=== PATIENT | female | born 1990 | race Caucasian/White ===

== ENCOUNTER → 2017-08-27 12:20 | Outpatient (CLI) | payer OTHER, SELFPAY ==
[2017-08-28 16:53] LABS: Strep Grp B PCR NEG for Grp B Strep
== END ==
PROVIDERS: Family Provider Internal Medicine; PCP Internal Medicine; Visit Provider Obstetrics & Gynecology
DX: Z34.03 Encounter for supervision of normal first pregnancy, third trimester (principal)
CPT/HCPCS: 87653

== ENCOUNTER 2017-09-03 08:51 | Outpatient (CLI) | payer OTHER, MEDICAID, SELFPAY ==
--- NOTE | 2017-09-03 17:53 | PM.OBTRLD ---
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
== END 2017-09-03 09:38 | disposition home or self-care (01) ==
LOC: LABOR 09:15 → OB 09-04 09:24
PROVIDERS: Family Provider Internal Medicine; PCP Internal Medicine; Visit Provider Obstetrics & Gynecology
DX: O24.913 Unspecified diabetes mellitus in pregnancy, third trimester (principal); Z3A.37 37 weeks gestation of pregnancy
CPT/HCPCS: 59025; G0378; G0379

== ENCOUNTER 2017-09-06 17:30 | Outpatient (CLI) | payer OTHER, MEDICAID, SELFPAY | END 2017-09-06 18:05 | disposition home or self-care (01) | LOC: OB 09-09 10:07 | PROVIDERS: Family Provider Internal Medicine; PCP Internal Medicine; Visit Provider Obstetrics & Gynecology | DX: O24.913 Unspecified diabetes mellitus in pregnancy, third trimester (principal); Z3A.38 38 weeks gestation of pregnancy | CPT/HCPCS: 59025; G0378; G0379 ==

== ENCOUNTER 2017-09-08 17:55 | Inpatient (IN) | payer OTHER, MEDICAID, SELFPAY ==
[2017-09-08 19:16] LABS: Add Manual Diff / Slide Review NO; Basophils Percent Auto 0.6 % (0-2); Eosinophils Percent Auto 1.1 % (2-4); Hematocrit 35.8 % (36-46); Hemoglobin 12.1 g/dL (12.0-16.0); Lymphocytes Percent Auto 13.3 % (25-40); Mean Corpuscular HGB Conc 33.8 % (30-36); Mean Corpuscular Hemoglobin 28.8 PG (26-34); Mean Corpuscular Volume 85.3 fL (80-100); Monocytes Percent Auto 5.3 % (3-14); Neutrophils Absolute Auto 8800 /uL (3000-5900); Neutrophils Percent Auto 79.7 % (50-75); Platelet Count 230 X10^3/uL (150-400); Red Cell Distribution Width 14.4 % (11.6-14.8); White Blood Cell Count 11.1 X10^3/uL (4.5-11.0)
[2017-09-08 19:21] VITALS: BP 114/72
[2017-09-08] MEDS: ACETAMINOPHEN 325 MG TABLET 650 MG PO (22:21)
[2017-09-08] MEDS: diphenhydrAMINE 25 MG TABLET PO (22:21)
[2017-09-08] MEDS: miSOPROStol 25 MCG TABLET VAG (22:22)
[2017-09-09] VITALS (8 sets, daily range): BP systolic 103–110; BP diastolic 59–77; PULSE 81–95; RESP 14–18; TEMP 37.1; O2SAT 95–99
[2017-09-09] MEDS: miSOPROStol 25 MCG TABLET VAG (02:20)
--- NOTE | 2017-09-09 07:47 | PM.OBHP.1 ---
OB HPI Date/Time Date of admission: 09/09/17 Date Patient Seen: 09/09/17 Time Patient Seen: 07:48 History of Present Illness Chief complaint: OBSERVATION : 1 Para: 0 Estimated Date of Delivery: 09/22/17 Estimated Gestational Age (weeks): 38 Narrative: Kriss Guerrier is a 26 year old female one para 0 who is an insulin-dependent gestational diabetic. Estimated weight on last exam was the 95th percentile. The patient is blood type A positive antibody screen negative. VDRL was nonreactive. Hematocrit was 381. Platelets were 292,000. Urine culture was positive but not treated during this . Hepatitis-B surface antigen was negative. HIV was negative. Chlamydia and GC screening were negative. Rubella was immune. Hep C was negative. Her Pap test was negative. Her varicella immunity was immune. Aneuploid screening in the 2nd trimester was negative. Group B strep was negative. anatomy screen was normal. Patient evidently had an abnormal 1 hr screen abdomen abnormal 3 hr GTT and was begun on insulin at least 13 and half weeks of to this patient may be simply a diabetic who is . Patient's insulin dose before admission was 24 units of NPH in her blood sugars were in well controlled. Indications Indication for induction OB: medical complication History of Present care: good care Dating criteria: LMP confirmed by 1st trimester US Ultrasounds: normal 1st trimester US and normal mid trimester US Obstetrical complications: gestational diabetes Preadmission Labs Blood type: A (+) positive -: Antibody screen: negative, Cystic fibrosis screen: unknown, GBS status: negative, HBsAG: negative, HIV: negative, HSV 1: negative, HSV 2: negative and RPR/VDLR: negative -: Chlamydia screen: not detected and Gonorrhea screen: not detected -: Rubella: immune and Varicella: immune HCT: 38 HCAB: negative PAP: Normal Quad screen: Normal Narrative: No record of 1 hr screen her three 0 GTT because the patient was diabetic early in her Evaluation Evaluation Laboratory results: Laboratory Tests 09/08/17 09/08/17 18:50 18:50 WBC 11.1 H RBC 4.20 Hgb 12.1 Hct 35.8 L MCV 85.3 MCH 28.8 MCHC 33.8 RDW 14.4 Plt Count 230 Neut % (Auto) 79.7 H Lymph % (Auto) 13.3 L [place] % (Auto) 5.3 Eos % (Auto) 1.1 L Baso % (Auto) 0.6 Neut # (Auto) 8800 H Blood Type A Positive Antibody Screen Negative PFSH Family History Grandfather Cancer Grandmother Heart disease Grandfather Heart disease Social History Smoking Status: Never smoker Meds Home Medications Medication Instructions Recorded Confirmed Type Glucose: Home Monitor ea TOPICAL SEE INSTRUCTIONS #1 02/19/17 Rx Lancets ea TOPICAL SEE INSTRUCTIONS #120 02/19/17 Rx Test Strips - Freestyle str TOPICAL SEE INSTRUCTIONS #120 02/19/17 Rx [place] 5/16 Inch ea SQ HS #30 03/11/17 Rx PNV cmb#95-ferrous fumarate-FA 1 tab PO DAILY 09/08/17 09/08/17 History [] insulin NPH isoph U-100 human 24 unit SQ HS 09/08/17 09/08/17 History [Novolin N NPH U-100 Insulin] Allergies Allergy/AdvReac Type Severity Reaction Status Date / Time codeine [CODEINE] Allergy Mild severe Verified 09/08/17 21:12 vomiting erythromycin base Allergy Mild childhood, Verified 09/08/17 21:12 [ERYTHROMYCIN BASE] unknown Penicillins [PENICILLINS] Allergy Mild childhood, Verified 09/08/17 21:12 unknown cold Allergy Mild hives, Uncoded 07/17/17 12:33 lips turn blue and will vomit lunch meats Allergy Mild face Uncoded 07/17/17 12:[address] [facility] Head: normal to inspection Ears: hearing grossly normal bilaterally Nose: external nose normal Face and sinus: normal facial exam Mouth: oral mucosae normal and tongue normal Teeth and gingiva: dentition normal Throat: posterior oropharynx normal and uvula midline Eyes General: appearance normal, both eyes and all related structures Eyelids: eyelids normal Conjunctivae: conjunctivae normal Sclera: sclerae normal Cornea: corneas normal Pupils: PERRL Neck Neck: normal visual inspection Chest Breast inspection: normal inspection of the breasts Breast Palpation: normal palpation of the breasts GI Palpation: soft and no hepatosplenomegaly Percussion: normal to percussion Auscultation: normal bowel sounds Back/Spine/Pelvis Thoracic/Lumbar Spine: thoracic and lumbar spine normal to inspection Skin Lesions: no lesions Rashes: no rashes Trauma: no lacerations or abrasions Wounds: no wounds Neuro General: alert, tone normal, no focal motor deficits and normal sensation to monofilament Extrem General: normal to inspection and full ROM Psych Appearance: grossly normal Objective Labs Result Diagrams: 09/08/17 18:50 Labs: Laboratory Results - last 24 hr 09/08/17 09/08/17 18:50 18:50 WBC 11.1 H RBC 4.20 Hgb 12.1 Hct 35.8 L MCV 85.3 MCH 28.8 MCHC 33.8 RDW 14.4 Plt Count 230 Neut % (Auto) 79.7 H Lymph % (Auto) 13.3 L [place] % (Auto) 5.3 Eos % (Auto) 1.1 L Baso % (Auto) 0.6 Neut # (Auto) 8800 H Blood Type A Positive Antibody Screen Negative Assessment and Plan (1) 38 weeks gestation of : Current visit: Yes Status: Acute Plan: Plan: Cytotec cervical ripening Pitocin induction of labor
[2017-09-09] MEDS: LACTATED RINGERS 1,000 ML 100 ML IV ×2 (09:10→11:36)
[2017-09-09] MEDS: OXYTOCIN PREMIX 30 UNIT/500 ML PLAST..BAG IV (09:10)
[2017-09-09] MEDS: ONDANSETRON 4 MG/2 ML INJ IV (16:40)
--- NOTE | 2017-09-09 18:59 | PM.PREOP ---
Pre-operative Note Interval Note Pre-op Check: History & Physical Reviewed by Physician
--- NOTE | 2017-09-09 19:00 | PM.OBPNLAB ---
Date/Time Date Patient Seen: 09/09/17 Time Patient Seen: 19:00 Pain Control Pain control: epidural Comments: Has received several boluses Pelvic Exam Dilation (cm): 10 Effacement (%): 100 station: 0 Amniotic membrane status: Ruptured Comments: Failed Laufe forceps placement after 2 1/2 hours of pushing with no further descent of the head Maternal exhaustion Contractions Contractions on admission: regular Monitor mode: External Pitocin rate (mU/min): 13 Contraction frequency (min): 2 Contraction pattern: Regular (but dysfunctional pattern with triplets and quads) Contraction intensity: Strong/Firm Status status: Category l Heart Rate Baseline: 150 Monitor Accelerations: Present Monitor Decelerations: Absent Monitor Variability: Moderate Assessment and Plan Assessment: other (Stage II arrest of labor) Plan: Comments: The risks, benefits, and alternatives were explained to the patient. The risks including bleeding, infection, injury to the bowel, bladder, or ureters. She understands these risks and agrees to proceed. A full capital P AR-Q was held and consent form was signed.
[2017-09-09] MEDS: CEFAZOLIN 2 GM/100 ML FROZ.PIGGY IV (19:10)
--- NOTE | 2017-09-09 19:36 | SUR.OPER ---
Supine on Padded OR bed, head on pillow, safety belt at thigh, arms secured on padded arm boards at <90 degrees abduction. Bump under right buttock. Legs uncrossed with pillow under knees, gel pad to heels, tape over blanket to lower legs.
--- NOTE | 2017-09-09 19:46 | SUR.OPER ---
viable male infant delivered at 192. placenta and cord blood labeled-to ob with rn.
--- NOTE | 2017-09-09 20:12 | PM.GYNOP.1 ---
Operative Date/Time/Diagnoses - Date of procedure: 09/09/17 Time of procedure: 20:13 Pre-op diagnosis: 38 weeks gestation Gestational diabetes requiring insulin therapy Stage II arrest of labor Post-op diagnosis: same Procedure: Procedures Operation Date: 09/09/17 19:25 Actual Procedures Side Surgeon p Section Darlin Carranza MD Primary section Indications: Stage II arrest of labor 38 weeks gestation Gestational diabetes on insulin Occiput posterior presentation Surgeon: Darlin Carranza Farm Equipment Maintenance Supervisor: Varun Howard Anesthesia Type: Spinal (With Duramorph) Operative Notes Findings: Live male infant Direct occiput posterior presentation Closure Type: primary Specimen(s): other (Cord pH, cord bloods, placenta) Applied: catheter Estimated blood loss (mL): 600 Blood products transfused: none Procedure in detail: The patient was taken to the operating room where she was placed in the dorsal supine position with a leftward tilt. She was prepped and draped in the usual sterile fashion. A timeout was performed. After Epidural analgesia was found to be adequate, a Pfannenstiel skin incision was made 2 fingerbreadths above the pubic symphysis and carried through to the underlying layer fascia. The fascia was nicked in the midline, and the incision extended bilaterally with the Goff scissors. The superior aspect of the fascial incision was grasped with a Plainwell clamps, elevated, and the underlying rectus muscles dissected off sharply and bluntly. Attention was then turned to the inferior aspect of this incision which in a similar fashion was grasped with a Plainwell clamps, elevated, and the underlying rectus muscles dissected off sharply and bluntly. The rectus muscles were in the midline. The peritoneum was identified, grasped between 2 hemostats, and entered sharply with the Metzenbaum scissors. This incision was extended superiorly and inferiorly with good visualization of the bladder. The bladder blade was inserted. The vesicouterine peritoneum was identified, grasped with the pickup, and entered sharply with the Metzenbaum scissors. This incision was extended bilaterally, and the bladder flap was created digitally. The bladder blade was reinserted. The lower uterine segment was incised in a transverse fashion with the scalpel. Upon entering the amniotic sac there was a moderate amount of clear amniotic fluid. The 's head was so low in the pelvis, that a total breech extraction was performed. The nose and mouth were suctioned with bulb suction. The remainder of the body delivered without difficulty. The cord was double clamped and cut. The infant was handed off to waiting RN and RT. Cord bloods were obtained. A piece of cord for cord pH was obtained. The placenta was delivered manually. The uterus was cleared of all clots and debris. The uterine incision was repaired with #1 chromic in a running interlocking fashion, and a second layer the same suture was used for an imbricating layer. Hemostasis was achieved. The tubes and ovaries were examined and were found to be normal. The gutters were cleared of all clots and debris. The bladder flap was reapproximated using 2-0 Vicryl in a running fashion. The parietal peritoneum was closed using 2-0 Vicryl in a running fashion. The fascia was reapproximated using 0 Vicryl in a running fashion. Subcutaneous layer was copiously irrigated with warm normal saline. Five simple interrupted sutures of 3-0 Vicryl were placed to reapproximate the subcutaneous layer. The skin was closed with 4-0 undyed Vicryl in a subcuticular fashion. Steri-Strips were placed. An Aquacel dressing was placed. The uterus was expressed of a small amount of old blood. Sponge, lap, and instrument counts were correct x-2. The patient tolerated the procedure well, and was taken to PACU in stable condition. Complications: none Post-operative Condition: stable Disposition: PACU Plan for aftercare: To [facility]
--- NOTE | 2017-09-09 20:34 | SUR.PHASEI ---
2029 Rx given x2 via epidural by Dr. Moss. Pain ranged from 6 down to a 4, which is the current level. Fundus firm At U+1, deviated to the right upon arrival. Small vag flow with massage. Dressing remains CDI. 2038 Fundus massaged to firm at U, Scant vag flow, dressing remains CDI. Motion, sensation in feet.
--- NOTE | 2017-09-09 20:57 | SUR.PHASEI ---
2042 late entry To center. bed down and locked, call light within reach. patient drowsy, responds easily to voice. SCDs & continuous pulse oximeter on. Family at bedside. Dr. Gibbons spoke with patient. VSS.
[2017-09-09] MEDS: MORPHINE PCA 30 MG/30 ML PCA.VIAL IV (22:00)
[2017-09-10] MEDS: KETOROLAC 30 MG/ML VIAL IV ×3 (04:26→17:51)
[2017-09-10] MEDS: LACTATED RINGERS 1,000 ML 100 ML IV (04:32)
[2017-09-10] MEDS: diphenhydrAMINE 50 MG/ML VIAL 25 MG IV ×2 (04:37→12:30)
[2017-09-10] MEDS: MORPHINE PCA 30 MG/30 ML PCA.VIAL IV (06:00)
[2017-09-10 07:15] LABS: Hematocrit 32.2 % (36-46); Hemoglobin 10.7 g/dL (12.0-16.0)
[2017-09-10] MEDS: PRENATAL VIT,CALC/IRON/FOLIC 1 TABLET 1 TAB PO (09:19)
[2017-09-10] MEDS: DOCUSATE 250 MG CAPSULE PO (09:19)
[2017-09-10 20:51] VITALS: TEMP 36.6
[2017-09-10] MEDS: OXYCODONE/ACETAMINOPHEN 5/325 TABLET 1 TAB PO (20:51)
[2017-09-10] MEDS: LANOLIN OINT 7 GM 1 APPLIC TOP (21:11)
[2017-09-10 23:52] VITALS: TEMP 36.7
[2017-09-10] MEDS: IBUPROFEN 600 MG TABLET PO (23:52)
[2017-09-11 04:27] VITALS: TEMP 36.7
[2017-09-11] MEDS: OXYCODONE/ACETAMINOPHEN 5/325 TABLET 2 TAB PO ×5 (04:27→20:35)
[2017-09-11] MEDS: IBUPROFEN 600 MG TABLET PO ×3 (06:42→18:51)
[2017-09-11] MEDS: PRENATAL VIT,CALC/IRON/FOLIC 1 TABLET 1 TAB PO (08:46)
[2017-09-11] MEDS: DOCUSATE 250 MG CAPSULE PO (08:46)
[2017-09-11 20:33] VITALS: TEMP 36.9
[2017-09-12] MEDS: OXYCODONE/ACETAMINOPHEN 5/325 TABLET 2 TAB PO ×2 (00:35→06:14)
[2017-09-12] MEDS: IBUPROFEN 600 MG TABLET PO ×2 (06:13→12:45)
[2017-09-12 06:17] VITALS: BP 109/79; PULSE 87; RESP 16; TEMP 36.6
[2017-09-12] MEDS: PRENATAL VIT,CALC/IRON/FOLIC 1 TABLET 1 TAB PO (11:10)
[2017-09-12] MEDS: ACETAMINOPHEN 325 MG TABLET 650 MG PO (11:10)
[2017-09-12] MEDS: DOCUSATE 250 MG CAPSULE PO (11:11)
--- NOTE | 2017-09-15 13:46 | PM.PNPO.1 ---
Subjective Date Patient Seen: 09/10/17 Time Patient Seen: 13:30 Interval history: Patient is a 26-year-old 1 para 1 postop day # 1 status post primary low-transverse section for stage II arrest of labor Pain is well controlled. Patient has been able to void without the catheter. She is ambulating and tolerating a diet. Breast-feeding is going okay. She is using support. Exam Vital Signs (past 8 hours): Pulse Oximetry 95 Oxygen Delivery Method Nasal Cannula Oxygen Flow Rate 2 Narrative Exam Narrative: Generally: Patient is sitting up in bed, no acute distress Lungs: Clear to auscultation bilaterally Cardiovascular: Regular rate and rhythm Abdomen: Fundus firm at U -1 Incision: Clean dry and intact with Aquacel dressing Extremities: 1+ edema, negative Homans Objective Labs Result Diagrams: 09/10/17 06:45 Assessment & Plan Post-op (1) Status post primary low transverse section: Current Visit: No Status: Acute (2) Gestational diabetes requiring insulin: Current Visit: No Status: Acute (3) 38 weeks gestation of : Current Visit: No Status: Acute Assessment and plan: Assessment: 26-year-old 1 para 1 postop day # 1 status post primary low-transverse section for stage II arrest of labor and direct occiput posterior presentation Patient doing very well Plan: support Continue routine postop care Postoperative Procedures Operation Date: 09/09/17 19:25 Actual Procedures Side Surgeon p Section Darlin Carranza MD Time Spent With Patient less than 15 minutes
--- NOTE | 2017-09-15 13:50 | PM.PNPO.1 ---
Subjective Date Patient Seen: 09/11/17 Time Patient Seen: 07:25 Interval history: Patient is a 26-year-old 1 para 1 postop day # 2 status post primary low-transverse section going better. Pain well controlled. Patient ambulating and tolerating a diet. Exam Vital Signs (past 8 hours): Pulse Oximetry 95 Oxygen Delivery Method Nasal Cannula Oxygen Flow Rate 2 Narrative Exam Narrative: Generally: Patient is sitting up in bed, holding , no acute distress Fundus: Firm at U -2 Incision: Clean dry and intact with Aquacel dressing Extremities: 1+ edema, negative Homans Objective Labs Result Diagrams: 09/10/17 06:45 Assessment & Plan Post-op (1) Status post primary low transverse section: Current Visit: No Status: Acute (2) Gestational diabetes requiring insulin: Current Visit: No Status: Acute (3) 38 weeks gestation of : Current Visit: No Status: Acute Assessment and plan: Assessment: 26-year-old 1 para 1 postop day # 2 status post primary low transverse c section for stage II arrest of labor and direct occiput posterior presentation Patient doing very well Plan: support Continue routine postop care Anticipate discharge 09/12/17 Postoperative Procedures Operation Date: 09/09/17 19:25 Actual Procedures Side Surgeon p Section Darlin Carranza MD Postoperative day: 2 Postoperative status: doing well Postoperative plan: routine post-op care Time Spent With Patient less than 15 minutes
--- NOTE | 2017-09-15 13:58 | PM.OBDS.1 ---
Discharge Providers Date of admission: 09/09/17 08:03 Primary care physician: ALENA Cardona Consults: 09/09/17 21:41 Consult to Cable Stretcher And Tester Routine Comment: Discharge provider: Darlin Carranza MD Summary Date Patient Seen: 09/12/17 Time Patient Seen: 13:59 Peripartum Data Delivery Method: Section Laceration description: None Procedures: Epidural analgesia Attempted forceps Primary low-transverse section complications: none Discharge Diagnosis (1) Status post primary low transverse section: Status: Acute (2) Gestational diabetes requiring insulin: Status: Acute (3) 38 weeks gestation of : Status: Acute Status at Discharge Functional status at discharge: independent ambulation Overall status at discharge: patient is progressing back to baseline Time Spent with Patient Total time spent providing and/or coordinating discharge services: 20 min Objective Labs Result Diagrams: 09/10/17 06:45 Discharge Plan Discharge Plan Patient Disposition: Home, Self-Care Discharge comment: Call with fever, chills, redness or drainage around incision or bleeding vaginally more than a pad in an hour Discharge Med Rec/Prescriptions Prescriptions: New acetaminophen 325 mg Tablet 650 mg PO Q6HR PRN (Reason: As Needed For Fever/Mild Pain) Qty: 30 RF: 0 ibuprofen 600 mg Tablet 600 mg PO Q6HR PRN (Reason: As Needed For Fever/Mild Pain) Qty: 30 RF: 1 docusate sodium 250 mg Capsule 250 mg PO DAILY Qty: 20 RF: 0 tramadol 50 mg tablet 50 mg PO Q6H PRN (Reason: pain) Qty: 30 RF: 0 Continue PNV cmb#95-ferrous fumarate-FA [] 28 mg iron- 800 mcg Tablet 1 tab PO DAILY RF: 0 Discontinued insulin NPH isoph U-100 human [Novolin N NPH U-100 Insulin] 100 UNIT/1 ML suspension 24 unit SQ HS RF: 0 Glucose: Home Monitor 1 ea Topical SEE INSTRUCTIONS RF: 0 Lancets 1 ea Topical SEE INSTRUCTIONS RF: 0 [place] 5/16 Inch 1 ea SQ HS RF: 0 Test Strips - Freestyle 1 str Topical SEE INSTRUCTIONS RF: 0 Follow up/Referrals: Darlin Carranza MD [Physician] - 1 Week (September 17, Saturday, at 11:30am) Provider Discharge Instructions Diet: Diet as Tolerated Activity: No heavy lifting Limit stairs Wound Care Report to your healthcare provider any signs of infection, such as:: chills, fever, increased pain and unusual drainage Dressing: Will remove in 1 week, leave in place until then Visit Report/Discharge Packet Instructions: DI for Visit Report Forms: Stroke Signs & Symptoms Discharge Data Primary Care Provider: Nga Gibbons Attending Provider: Darlin Carranza Admit Date/Time: 09/09/17 08:03 Discharges patient from system. Discharge Date/Time: 09/12/17 13:08
== END 2017-09-12 13:08 | disposition home or self-care (01) | DRG 766 ==
PROVIDERS: Admitting Provider Obstetrics & Gynecology; Family Provider Internal Medicine; PCP Internal Medicine; Visit Provider Obstetrics & Gynecology
PROC: 10D00Z1 Extraction of Products of Conception, Low, Open Approach (ICD-10-PCS; CPT 59514; principal; 2017-09-09 19:25)
DX: O24.414 Gestational diabetes mellitus in pregnancy, insulin controlled (principal); Z3A.38 38 weeks gestation of pregnancy; O75.81 Maternal exhaustion complicating labor and delivery; O62.1 Secondary uterine inertia; Z37.0 Single live birth; O66.5 Attempted application of vacuum extractor and forceps; O64.0XX0 Obstructed labor due to incomplete rotation of fetal head, not applicable or unspecified
CPT/HCPCS: 01967; 01968; 36415; 59050; 59510; 59514; 85014; 85018; 85025; 86850; 86900; 86901; G0378; G0379; J0131; J0690; J1200; J1885; J2274; J2405; J2590; J3010

== ENCOUNTER → 2017-11-15 07:45 | Outpatient (CLI) | payer OTHER, MEDICAID, SELFPAY ==
[2017-11-15 08:46] LABS: Glucose Fasting 147 mg/dL (70-100)
[2017-11-15 10:03] LABS: Glucose Tol Interpretation INTERPRETATION
[2017-11-15 10:07] LABS: Glucose 1 Hour 285 mg/dL (70-170)
[2017-11-15 11:16] LABS: Glucose 2 Hour 259 mg/dL (70-140)
== END ==
PROVIDERS: PCP Internal Medicine; Visit Provider Obstetrics & Gynecology
DX: O20.9 Hemorrhage in early pregnancy, unspecified (principal); O24.414 Gestational diabetes mellitus in pregnancy, insulin controlled
CPT/HCPCS: 36415; 82951; 82952

== ENCOUNTER → 2017-12-06 08:54 | Outpatient (CLI) | payer OTHER, MEDICAID, SELFPAY ==
[2017-12-06 09:40] LABS: Appearance Urine UA SL CLOUDY; Bilirubin Urine UA NEGATIVE (NEGATIVE); Color Urine UA YELLOW; Glucose Urine UA NEGATIVE (Normal); Ketones Urine UA NEGATIVE (NEGATIVE); Leukocyte Esterase Urine UA NEGATIVE (NEGATIVE); Nitrite Urine UA Negative (Negative); Occult Blood Urine UA NEGATIVE (Negative); Protein Urine UA NEGATIVE (Negative); Specific Gravity Urine UA >=1.030 (1.000-1.035); Urobilinogen Urine UA 0.2 E.U./dL (0.2)
[2017-12-06 09:44] LABS: Hemoglobin A1C% w Est Avg Glu 6.4 % (4.0-6.0)
[2017-12-06 09:48] LABS: Add Manual Diff / Slide Review NO; Basophils Percent Auto 0.2 % (0-2); Hemoglobin 13.3 g/dL (12.0-16.0); Lymphocytes Percent Auto 16.7 % (25-40); Mean Corpuscular HGB Conc 33.2 % (30-36); Mean Corpuscular Hemoglobin 27.6 PG (26-34); Mean Corpuscular Volume 83.1 fL (80-100); Monocytes Percent Auto 4.9 % (3-14); Neutrophils Absolute Auto 6600 /uL (3000-5900); Neutrophils Percent Auto 76.2 % (50-75); Platelet Count 365 X10^3/uL (150-400); Red Blood Cell Count 4.82 X10^6/uL (4.0-5.2); Red Cell Distribution Width 14.9 % (11.6-14.8); White Blood Cell Count 8.7 X10^3/uL (4.5-11.0)
[2017-12-06 10:03] LABS: Alanine Aminotransferase 13 IU/L (9-52); Albumin 4.5 g/dL (3.5-5.0); Albumin Globulin Ratio 1.3 (1.0-2.8); Alkaline Phosphatase 70 U/L (38-126); Aspartate Aminotransferase 16 IU/L (14-36); Bilirubin Total 0.4 mg/dL (0.2-1.3); Blood Urea Nitrogen 16 mg/dL (7-17); Calcium 9.5 mg/dL (8.4-10.2); Carbon Dioxide 30 mmol/L (22-32); Chloride 102 mmol/L (98-107); Cholesterol 182 mg/dL (140-199); Estimated Glomerular Filt Rate > 60.0 mL/min (>60); Globulin 3.5 g/dL (1.7-4.1); Glucose 152 mg/dL (70-100); HDL Cholesterol 64 mg/dL (40-60); HEMOLYSIS < 15 (0-50); LDL Cholesterol Calculated 102 mg/dL (<100); Potassium 4.3 mmol/L (3.4-5.1); Sodium 144 mmol/L (137-145); Triglycerides 81 mg/dL (35-150)
[2017-12-06 10:10] LABS: RBC Urine 0-1/HPF (0-5/HPF); Squamous Epithelial Cell Urine 5-10 /HPF; WBC Urine 1-5/HPF (0-5/HPF)
[2017-12-06 10:11] LABS: Bacteria Urine Many (>30); Culture Indicated Urine Cult Not Indicated; Mucus Urine 1+ (Negative)
[2017-12-06 10:32] LABS: TSH w/ Reflex to FT4 2.23 uIU/mL (0.47-4.68)
== END ==
PROVIDERS: PCP Family Medicine; Visit Provider Nurse Practitioner Family
DX: E11.9 Type 2 diabetes mellitus without complications (principal)
CPT/HCPCS: 36415; 80053; 80061; 81001; 83036; 84443; 85025

== ENCOUNTER → 2019-07-27 16:28 | Outpatient (CLI) | payer OTHER, MEDICAID, SELFPAY ==
[2019-07-27 17:19] LABS: Hemoglobin A1C% w Est Avg Glu 9.7 % (4.0-6.0)
[2019-07-27 18:57] LABS: HCG Quantitative /Beta subunit 54.4 mIU/mL
== END ==
PROVIDERS: Family Provider Internal Medicine; PCP Family Medicine; Referring Provider Obstetrics & Gynecology; Visit Provider Obstetrics & Gynecology
DX: E11.9 Type 2 diabetes mellitus without complications (principal); N91.2 Amenorrhea, unspecified
CPT/HCPCS: 36415; 83036; 84702

== ENCOUNTER → 2019-08-07 15:13 | Outpatient (CLI) | payer OTHER, SELFPAY ==
[2019-08-07 17:24] LABS: HCG Quantitative /Beta subunit 3016.6 mIU/mL
[2019-08-07 17:38] LABS: TSH w/ Reflex to FT4 1.21 uIU/mL (0.47-4.68)
== END ==
PROVIDERS: Family Provider Internal Medicine; PCP Family Medicine; Referring Provider Obstetrics & Gynecology; Visit Provider Obstetrics & Gynecology
DX: O24.911 Unspecified diabetes mellitus in pregnancy, first trimester (principal)
CPT/HCPCS: 36415; 84443; 84702; 86850; 86900; 86901

== ENCOUNTER → 2019-08-26 12:22 | Outpatient (CLI) | payer OTHER, MEDICAID, SELFPAY ==
[2019-08-26 16:16] LABS: Urine N gonorrhoeae NOT DETECTED
[2019-08-26 16:25] LABS: Urine Chlamydia NOT DETECTED
== END ==
PROVIDERS: Family Provider Internal Medicine; PCP Family Medicine; Visit Provider Obstetrics & Gynecology
DX: Z11.51 Encounter for screening for human papillomavirus (HPV) (principal)
CPT/HCPCS: 87491; 87591

== ENCOUNTER → 2019-08-26 12:46 | Outpatient (CLI) | payer OTHER, MEDICAID, SELFPAY ==
[2019-08-26 14:10] LABS: Add Manual Diff / Slide Review NO; Basophils Absolute Auto 0 /uL (0-100); Basophils Percent Auto 0.4 % (0-2); Eosinophils Absolute Auto 200 /uL (0-450); Eosinophils Percent Auto 1.5 % (2-4); Hematocrit 39.8 % (36-46); Hemoglobin 13.5 g/dL (12.0-16.0); Lymphocytes Absolute Auto 1900 /uL (1100-4500); Lymphocytes Percent Auto 14.5 % (25-40); Mean Corpuscular Hemoglobin 29.7 PG (26-34); Mean Corpuscular Volume 87.2 fL (80-100); Monocytes Absolute Auto 800 /uL (0-900); Monocytes Percent Auto 5.9 % (3-14); Neutrophils Absolute Auto 10300 /uL (1500-7000); Neutrophils Percent Auto 77.7 % (50-75); Platelet Count 323 X10^3/uL (150-400); Red Blood Cell Count 4.56 X10^6/uL (4.0-5.2); Red Cell Distribution Width 14.5 % (11.6-14.8); White Blood Cell Count 13.2 X10^3/uL (4.5-11.0)
[2019-08-26 17:43] LABS: Appearance Urine UA CLEAR; Bilirubin Urine UA NEGATIVE (NEGATIVE); Color Urine UA YELLOW; Glucose Urine UA TRACE g/dL (Negative); Ketones Urine UA NEGATIVE (NEGATIVE); Leukocyte Esterase Urine UA 1+ (NEGATIVE); Nitrite Urine UA NEGATIVE (Negative); Occult Blood Urine UA NEGATIVE (Negative); Protein Urine UA NEGATIVE (Negative); Urobilinogen Urine UA 0.2 E.U./dL (0.2)
[2019-08-26 17:47] LABS: RBC Urine None Seen (0-5/HPF)
[2019-08-26 18:04] LABS: Amorphous Sediment Urine 1+; Bacteria Urine Occasional (0-1); Culture Indicated Urine Specimen Cultured; Mucus Urine 1+ (Negative); Squamous Epithelial Cell Urine 5-10 /HPF (0-5/HPF); WBC Urine 5-10/HPF (0-5/HPF)
[2019-08-27 09:56] LABS: Varicella IgG Antibody 992 index (Immune >165)
[2019-08-27 16:36] LABS: HIV 1 & 2 Ab/Ag 4th Gen Combo NEGATIVE (NEGATIVE); Hep C Virus Ab w/Reflex Quant NEGATIVE s/c (NEGATIVE); Hepatitis B Surface Antigen NEGATIVE s/c (NEGATIVE)
[2019-08-29 09:07] LABS: RPR Screen Non Reactive (Non Reactive)
== END ==
PROVIDERS: Family Provider Internal Medicine; PCP Family Medicine; Referring Provider Obstetrics & Gynecology; Visit Provider Obstetrics & Gynecology
DX: O24.311 Unspecified pre-existing diabetes mellitus in pregnancy, first trimester (principal); Z11.51 Encounter for screening for human papillomavirus (HPV)
CPT/HCPCS: 36415; 80055; 81003; 81015; 83036; 86787; 86803; 86850; 86900; 86901; 87086; 87389; 87491; 87591

== ENCOUNTER → 2019-09-23 08:57 | Outpatient (CLI) | payer OTHER, MEDICAID, SELFPAY ==
[2019-09-23 10:47] LABS: Estimated Glomerular Filt Rate > 60.0 mL/min (>60)
[2019-09-23 10:48] LABS: Alanine Aminotransferase 7 IU/L (<35); Albumin 3.4 g/dL (3.5-5.0); Albumin Globulin Ratio 1.2 (1.0-2.8); Alkaline Phosphatase 52 U/L (38-126); Aspartate Aminotransferase 14 IU/L (14-36); BUN Creatinine Ratio 15.4 (6-22); Bilirubin Total 0.2 mg/dL (0.2-1.3); Blood Urea Nitrogen 8 mg/dL (7-17); Calcium 9.1 mg/dL (8.4-10.2); Carbon Dioxide 20 mmol/L (22-32); Chloride 107 mmol/L (98-107); Estimated Glomerular Filt Rate > 60.0 mL/min (>60); Globulin 2.8 g/dL (1.7-4.1); Glucose 130 mg/dL (70-100); HEMOLYSIS < 15 (0-50); Potassium 3.7 mmol/L (3.4-5.1); Sodium 135 mmol/L (137-145); Total Protein 6.2 g/dL (6.3-8.2)
[2019-09-23 10:58] LABS: Collection Time Urine 12 Hours; Creatinine Clearance Urine 254.2 mL/MIN; Creatinine Urine Random 140.8 mg/dL; Patient Height Urine 66 inches; Patient Weight Urine 249 lbs; Total Volume Urine 650 mL
[2019-09-24 18:36] LABS: 24 Hour Ur Protein Calculated 57 mg/24 hr (30-150)
== END ==
PROVIDERS: Obstetrics & Gynecology; Family Provider Internal Medicine; PCP Family Medicine; Referring Provider Obstetrics & Gynecology; Visit Provider Obstetrics & Gynecology
DX: O24.414 Gestational diabetes mellitus in pregnancy, insulin controlled (principal); Z01.812 Encounter for preprocedural laboratory examination; Z3A.12 12 weeks gestation of pregnancy
CPT/HCPCS: 36415; 80053; 82565; 82575; 84156

== ENCOUNTER → 2019-10-27 10:02 | Outpatient (CLI) | payer OTHER, MEDICAID, SELFPAY ==
[2019-11-11 19:57] LABS: Miscellaneous to LabCorp SEE SCANNED DOCUMENT
== END ==
PROVIDERS: Family Provider Internal Medicine; PCP Family Medicine; Referring Provider Obstetrics & Gynecology; Visit Provider Obstetrics & Gynecology
DX: Z34.82 Encounter for supervision of other normal pregnancy, second trimester (principal); Z36.0 Encounter for antenatal screening for chromosomal anomalies
CPT/HCPCS: 36415

== ENCOUNTER → 2019-12-10 09:10 | Outpatient (CLI) | payer OTHER, MEDICAID, SELFPAY ==
--- NOTE | 2019-12-10 09:11 | DI.US.S_ITS ---
PROCEDURE: US OB FOLLOW UP INDICATIONS: FOLLOW-UP ANATOMY SCAN OUTSIDE/PRIOR DATING DATA: Last menstrual period (LMP): 06/25/19. LMP-based estimated date of delivery (DESTINEE): 03/31/20 . First dating scan (date and location): 08/14/19 . Estimated date of delivery (DESTINEE) from first dating scan: 04/08/20 . TECHNIQUE: Real-time scanning was performed of the fetus, with image documentation. Endovaginal scanning: Not performed COMPARISON: Outside Facility, RG, US OB DETAILED SGL FETUS, 11/16/2019, 10:28. FINDINGS: A single living intrauterine gestation is present. Presentation: Vertex Placenta: Placental position is posterior , without previa. Amniotic fluid index: 16.3 cm, normal range is 5-24 cm. heart rate: 140 beats per minute. Maternal cervical canal: The cervical canal is shortened at 1.0 cm with funneling, with maximal dilatation of the cervical canal measuring up to 2.8 cm and a craniocaudad length of this final ink measuring up to 4.1 cm. Estimated gestational age from initial scan: 22 weeks 6 days Note: Completion of the anatomic survey was performed with normal 4 chamber view of heart and visualization of the spine, normal visualization of the cardiac outflow tracts. Chest and diaphragm appear normal. Right upper extremity appears normal. IMPRESSION: Completion of the anatomic survey as discussed above. Note is made of abnormal funneling of the endocervical canal, and this information was immediately conveyed to the lead nurse for Dr. Girard, the ordering healthcare provider. Dictated by: Teo Whitman M.D. on 12/10/2019 at 12:16 Approved by: Teo Whitman M.D. on 12/10/2019 at 12:25
== END ==
PROVIDERS: Family Provider Internal Medicine; PCP Family Medicine; Referring Provider Obstetrics & Gynecology; Visit Provider Obstetrics & Gynecology
DX: Z36.2 Encounter for other antenatal screening follow-up (principal); O34.42 Maternal care for other abnormalities of cervix, second trimester; Z3A.22 22 weeks gestation of pregnancy
CPT/HCPCS: 76816

== ENCOUNTER 2019-12-10 10:08 | Outpatient (CLI) | payer OTHER, MEDICAID, SELFPAY ==
[2019-12-10 11:41] LABS: Fetal Fibronectin Positive
[2019-12-10] MEDS: LACTATED RINGERS 1,000 ML 1000 ML IV (11:58)
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
== END 2019-12-10 14:30 | disposition home or self-care (01) ==
LOC: LABOR 14:33 → OB 12-15 11:44
PROVIDERS: Family Provider Internal Medicine; PCP Family Medicine; Referring Provider Obstetrics & Gynecology; Visit Provider Obstetrics & Gynecology
DX: O26.872 Cervical shortening, second trimester (principal); O24.414 Gestational diabetes mellitus in pregnancy, insulin controlled; Z3A.24 24 weeks gestation of pregnancy
CPT/HCPCS: 59025; 59050; 76816; 82731; 96360; G0378; G0379

== ENCOUNTER 2020-07-15 15:31 | Emergency (ER) | payer OTHER, MEDICAID, SELFPAY ==
[2020-07-15 15:37] VITALS: BP 127/59; PULSE 106; RESP 16; TEMP 36.7; O2SAT 98; BMI 39.0
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
[2020-07-15] MEDS: HYDROMORPHONE 1 MG INJ IM (16:30)
[2020-07-15] MEDS: KETOROLAC 60 MG/2 ML VIAL 30 MG IM (16:30)
[2020-07-15 16:52] VITALS: BP 133/75; PULSE 89; RESP 18; O2SAT 96
== END 2020-07-15 16:54 | disposition home or self-care (01) ==
PROVIDERS: Emergency Provider Emergency Medicine; Family Provider Internal Medicine; PCP Family Medicine
DX: M54.5 Low back pain (principal)
CPT/HCPCS: 96372; 99283; J1170; J1885

== ENCOUNTER → 2021-05-15 07:12 | Outpatient (CLI) | payer OTHER, MEDICAID, SELFPAY ==
[2021-05-15 08:31] LABS: Hemoglobin A1C% w Est Avg Glu 11.2 % (4.0-6.0)
[2021-05-15 08:33] LABS: Alanine Aminotransferase 12 IU/L (<35); Albumin 3.9 g/dL (3.5-5.0); Albumin Globulin Ratio 1.3 (1.0-2.8); Alkaline Phosphatase 65 U/L (38-126); Aspartate Aminotransferase 18 IU/L (14-36); BUN Creatinine Ratio 15.4 (6-22); Bilirubin Total 0.4 mg/dL (0.2-1.3); Blood Urea Nitrogen 8 mg/dL (7-17); Calcium 8.8 mg/dL (8.4-10.2); Carbon Dioxide 28 mmol/L (22-32); Chloride 104 mmol/L (98-107); Estimated Glomerular Filt Rate > 60.0 mL/min (>60); Glucose 286 mg/dL (70-100); HEMOLYSIS < 15 (0-50); Potassium 3.5 mmol/L (3.4-5.1); Sodium 138 mmol/L (137-145); Total Protein 6.9 g/dL (6.3-8.2)
[2021-05-15 08:58] LABS: Creatinine Urine Random 143.7 mg/dL
[2021-05-15 09:02] LABS: Microalbumi Creatinin Ratio Ur 16.7 ug/mg CR (<30); Microalbumin Urine Random 2.4 mg/dL (0-1.6)
== END ==
PROVIDERS: Family Provider Internal Medicine; PCP Family Medicine; Referring Provider Family Medicine; Visit Provider Family Medicine
DX: E11.9 Type 2 diabetes mellitus without complications (principal)
CPT/HCPCS: 36415; 80053; 82043; 82570; 83036

== ENCOUNTER → 2021-07-27 09:26 | Outpatient (CLI) | payer OTHER, MEDICAID, SELFPAY ==
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
== END ==
PROVIDERS: Family Provider Internal Medicine; PCP Family Medicine; Referring Provider Family Medicine; Visit Provider Family Medicine
DX: E11.9 Type 2 diabetes mellitus without complications (principal); Z79.4 Long term (current) use of insulin; Z71.3 Dietary counseling and surveillance
CPT/HCPCS: G0108

== ENCOUNTER → 2021-08-17 09:16 | Outpatient (CLI) | payer OTHER, MEDICAID, SELFPAY ==
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
== END ==
PROVIDERS: Family Provider Internal Medicine; PCP Family Medicine; Referring Provider Family Medicine; Visit Provider Family Medicine
DX: E11.9 Type 2 diabetes mellitus without complications (principal); Z79.4 Long term (current) use of insulin; Z71.3 Dietary counseling and surveillance
CPT/HCPCS: G0108

== ENCOUNTER → 2021-08-28 08:55 | Outpatient (CLI) | payer OTHER, MEDICAID, SELFPAY ==
[2021-08-28 10:24] LABS: Hemoglobin A1C% w Est Avg Glu 7.8 % (4.0-6.0)
== END ==
PROVIDERS: Family Provider Internal Medicine; PCP Family Medicine; Referring Provider Family Medicine; Visit Provider Family Medicine
DX: E11.65 Type 2 diabetes mellitus with hyperglycemia (principal)
CPT/HCPCS: 36415; 83036

== ENCOUNTER → 2021-09-28 08:50 | Outpatient (CLI) | payer OTHER, MEDICAID, SELFPAY ==
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
== END ==
PROVIDERS: Family Provider Internal Medicine; PCP Family Medicine; Referring Provider Family Medicine; Visit Provider Family Medicine
DX: E11.9 Type 2 diabetes mellitus without complications (principal); Z71.3 Dietary counseling and surveillance; Z79.4 Long term (current) use of insulin
CPT/HCPCS: G0108

== ENCOUNTER → 2021-10-12 09:02 | Outpatient (CLI) | payer OTHER, MEDICAID, SELFPAY ==
[2021-10-12 11:57] LABS: Hemoglobin A1C% w Est Avg Glu 7.2 % (4.0-6.0)
[2021-10-12 12:29] LABS: HCG Quantitative /Beta subunit < 2.4 mIU/mL
== END ==
PROVIDERS: Family Provider Internal Medicine; PCP Family Medicine; Referring Provider Family Medicine; Visit Provider Family Medicine
DX: Z34.90 Encounter for supervision of normal pregnancy, unspecified, unspecified trimester (principal); E11.65 Type 2 diabetes mellitus with hyperglycemia
CPT/HCPCS: 36415; 83036; 84702

== ENCOUNTER → 2022-02-26 07:26 | Outpatient (CLI) | payer OTHER, MEDICAID, SELFPAY ==
[2022-02-26 08:50] LABS: Hemoglobin A1C% w Est Avg Glu 7.8 % (4.0-6.0)
== END ==
PROVIDERS: Family Provider Internal Medicine; PCP Family Medicine; Referring Provider Family Medicine; Visit Provider Family Medicine
DX: E11.65 Type 2 diabetes mellitus with hyperglycemia (principal)
CPT/HCPCS: 36415; 83036

== ENCOUNTER → 2022-06-06 17:13 | Outpatient (CLI) | payer SELFPAY ==
[2022-06-06 18:29] LABS: Alanine Aminotransferase 17 IU/L (<35); Albumin 3.8 g/dL (3.5-5.0); Albumin Globulin Ratio 1.2 (1.0-2.8); Alkaline Phosphatase 77 U/L (38-126); Aspartate Aminotransferase 22 IU/L (14-36); Bilirubin Total 0.2 mg/dL (0.2-1.3); Blood Urea Nitrogen 11 mg/dL (7-17); Calcium 8.9 mg/dL (8.4-10.2); Carbon Dioxide 27 mmol/L (22-32); Chloride 102 mmol/L (98-107); Estimated Glomerular Filt Rate > 60 mL/min (>60); Globulin 3.3 g/dL (1.7-4.1); Glucose 205 mg/dL (70-100); HEMOLYSIS < 15 (0-50); Potassium 4.2 mmol/L (3.4-5.1); Sodium 138 mmol/L (137-145); Total Protein 7.1 g/dL (6.3-8.2)
[2022-06-06 20:19] LABS: Creatinine Urine Random 103.1 mg/dL
[2022-06-06 20:24] LABS: Microalbumi Creatinin Ratio Ur 12.6 ug/mg CR (<30); Microalbumin Urine Random 1.3 mg/dL (0-1.6)
[2022-06-06 20:44] LABS: Hemoglobin A1C% w Est Avg Glu 7.7 % (4.0-6.0)
== END ==
PROVIDERS: Family Provider Internal Medicine; PCP Family Medicine; Referring Provider Family Medicine; Visit Provider Family Medicine
DX: E11.9 Type 2 diabetes mellitus without complications (principal); Z79.4 Long term (current) use of insulin
CPT/HCPCS: 36415; 80053; 82043; 82570; 83036

== ENCOUNTER → 2022-08-29 16:00 | Outpatient (CLI) | payer OTHER, MEDICAID, SELFPAY ==
[2022-08-30 06:04] LABS: x Labcorp Estim. Avg Glu (eAG) 166 mg/dL (.); x Labcorp Hemoglobin A1c 7.4 % (4.8-5.6)
== END ==
PROVIDERS: Family Provider Internal Medicine; PCP Family Medicine; Referring Provider Family Medicine; Visit Provider Family Medicine
DX: E11.9 Type 2 diabetes mellitus without complications (principal); Z79.4 Long term (current) use of insulin
CPT/HCPCS: 36415; 83036

== ENCOUNTER → 2023-02-09 10:30 | Outpatient (CLI) | payer OTHER, MEDICAID, SELFPAY ==
[2023-02-09 11:17] LABS: Hemoglobin A1C% w Est Avg Glu 6.8 % (4.0-6.0)
[2023-02-09 11:32] LABS: Alanine Aminotransferase 15 IU/L (<35); Albumin 3.7 g/dL (3.5-5.0); Albumin Globulin Ratio 1.2 (1.0-2.8); Alkaline Phosphatase 60 U/L (38-126); Aspartate Aminotransferase 22 IU/L (14-36); BUN Creatinine Ratio 10.2 (6-22); Bilirubin Total 0.3 mg/dL (0.2-1.3); Blood Urea Nitrogen 6 mg/dL (7-17); Calcium 9.1 mg/dL (8.4-10.2); Carbon Dioxide 25 mmol/L (22-32); Chloride 105 mmol/L (98-107); Estimated Glomerular Filt Rate > 60 mL/min (>60); Glucose 121 mg/dL (70-100); HEMOLYSIS < 15 (0-50); Potassium 4.2 mmol/L (3.4-5.1); Sodium 138 mmol/L (137-145); Total Protein 6.7 g/dL (6.3-8.2)
== END ==
PROVIDERS: Family Provider Internal Medicine; PCP Student in an Organized Health Care Education/Training Program; Referring Provider Student in an Organized Health Care Education/Training Program; Visit Provider Student in an Organized Health Care Education/Training Program
DX: E11.65 Type 2 diabetes mellitus with hyperglycemia (principal); Z79.4 Long term (current) use of insulin; E66.01 Morbid (severe) obesity due to excess calories; Z68.41 Body mass index [BMI] 40.0-44.9, adult
CPT/HCPCS: 36415; 80053; 83036

== ENCOUNTER → 2023-06-06 06:56 | Outpatient (CLI) | payer OTHER, MEDICAID, SELFPAY ==
[2023-06-06 08:42] LABS: Hemoglobin A1C% w Est Avg Glu 6.2 % (4.0-6.0)
[2023-06-06 09:04] LABS: Alanine Aminotransferase 19 IU/L (<35); Albumin 3.8 g/dL (3.5-5.0); Albumin Globulin Ratio 1.2 (1.0-2.8); Alkaline Phosphatase 62 U/L (38-126); Aspartate Aminotransferase 25 IU/L (14-36); BUN Creatinine Ratio 12.5 (6-22); Bilirubin Total 0.4 mg/dL (0.2-1.3); Blood Urea Nitrogen 8 mg/dL (7-17); Calcium 8.7 mg/dL (8.4-10.2); Carbon Dioxide 27 mmol/L (22-32); Chloride 107 mmol/L (98-107); Estimated Glomerular Filt Rate > 60 mL/min (>60); Globulin 3.1 g/dL (1.7-4.1); Glucose 143 mg/dL (70-100); HEMOLYSIS < 15 (0-50); Potassium 3.7 mmol/L (3.4-5.1); Sodium 138 mmol/L (137-145); Total Protein 6.9 g/dL (6.3-8.2)
== END ==
LOC: LAB 06:57
PROVIDERS: Family Provider Internal Medicine; PCP Student in an Organized Health Care Education/Training Program; Referring Provider Student in an Organized Health Care Education/Training Program; Visit Provider Student in an Organized Health Care Education/Training Program
DX: E66.01 Morbid (severe) obesity due to excess calories (principal); Z68.41 Body mass index [BMI] 40.0-44.9, adult; E11.65 Type 2 diabetes mellitus with hyperglycemia; Z79.4 Long term (current) use of insulin
CPT/HCPCS: 36415; 80053; 83036

== ENCOUNTER → 2023-09-06 06:59 | Outpatient (CLI) | payer OTHER, SELFPAY ==
[2023-09-06 08:27] LABS: Cholesterol 165 mg/dL (140-199); HDL Cholesterol 53 mg/dL (40-60); LDL Cholesterol Calculated 89 mg/dL (<100); Triglycerides 115 mg/dL (35-150)
[2023-09-06 08:42] LABS: Creatinine Urine Random 217.65 mg/dL
[2023-09-06 08:46] LABS: Microalbumin Urine Random 1.3 mg/dL (0-1.6)
== END ==
LOC: LAB 07:01
PROVIDERS: Family Provider Internal Medicine; PCP Student in an Organized Health Care Education/Training Program; Referring Provider Student in an Organized Health Care Education/Training Program; Visit Provider Student in an Organized Health Care Education/Training Program
DX: E11.9 Type 2 diabetes mellitus without complications (principal)
CPT/HCPCS: 36415; 80061; 82043; 82570

== ENCOUNTER 2023-12-30 20:08 | Emergency (ER) | payer BC, SELFPAY ==
[2023-12-30 20:12] VITALS: BP 128/79; PULSE 90; RESP 16; TEMP 36.5; O2SAT 98; BMI 33.5
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
[2023-12-30] MEDS: methocarbamoL 500 MG TABLET PO (23:39)
[2023-12-30] MEDS: ACETAMINOPHEN 325 MG TABLET 650 MG PO (23:39)
[2023-12-30 23:45] VITALS: BP 134/78; PULSE 66; RESP 20; TEMP 36.8; O2SAT 98
== END 2023-12-30 23:48 | disposition home or self-care (01) ==
PROVIDERS: Emergency Provider Emergency Medicine; Family Provider Internal Medicine; PCP Student in an Organized Health Care Education/Training Program
DX: S06.0X0A Concussion without loss of consciousness, initial encounter (principal); M54.2 Cervicalgia; V89.2XXA Person injured in unspecified motor-vehicle accident, traffic, initial encounter
CPT/HCPCS: 70450; 72125; 99283; 99284

== ENCOUNTER 2024-04-22 00:39 | Emergency (ER) | payer BC, SELFPAY ==
[2024-04-22] VITALS (10 sets, daily range): BP systolic 77–118; BP diastolic 53–60; PULSE 110–154; RESP 14–23; TEMP 37–37.1; O2SAT 97–100; BMI 28.8
[2024-04-22] MEDS: SODIUM CHLORIDE 0.9% 1,000 ML 1000 ML IV ×2 (01:08→01:52)
[2024-04-22] MEDS: EPINEPHrine 1 MG/ML 0.5 MG IM (01:09)
[2024-04-22] MEDS: FAMOTIDINE 20 MG/2 ML VIAL IV (01:10)
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
[2024-04-22] MEDS: methylPREDNISolone 125 MG/2 ML VIAL IV (01:11)
[2024-04-22] MEDS: diphenhydrAMINE 50 MG/ML VIAL IV (01:11)
--- NOTE | 2024-04-22 01:36 | PC.NURSE ---
Pt states that she is feeling better. Pt able to open her eyes now, denies SOB.
--- NOTE | 2024-04-22 03:14 | PC.NURSE ---
Pt ambulated in hallway, tolerated well. States she feels well enough to go home.
== END 2024-04-22 03:28 | disposition home or self-care (01) ==
PROVIDERS: Emergency Provider Emergency Medicine; Family Provider Internal Medicine; PCP Student in an Organized Health Care Education/Training Program
DX: L50.9 Urticaria, unspecified (principal); R42 Dizziness and giddiness; R19.7 Diarrhea, unspecified; R11.2 Nausea with vomiting, unspecified; T78.40XA Allergy, unspecified, initial encounter; R00.0 Tachycardia, unspecified; I95.9 Hypotension, unspecified
CPT/HCPCS: 36415; 96361; 96372; 96374; 96375; 99284; 99285; 99291; J0171; J1200; J2919

== ENCOUNTER → 2024-10-22 07:25 | Outpatient (CLI) | payer BC, SELFPAY ==
[2024-10-22 08:15] LABS: Microalbumi Creatinin Ratio Ur 9.0 ug/mg CR (<30)
[2024-10-22 08:47] LABS: Hemoglobin A1C% w Est Avg Glu 4.4 % (4.0-6.0)
[2024-10-22 08:54] LABS: Alanine Aminotransferase 9 IU/L (<35); Albumin 4.1 g/dL (3.5-5.0); Albumin Globulin Ratio 1.7 (1.0-2.8); Alkaline Phosphatase 35 U/L (38-126); Blood Urea Nitrogen 12 mg/dL (7-17); Calcium 9.1 mg/dL (8.4-10.2); Carbon Dioxide 23 mmol/L (22-32); Chloride 106 mmol/L (98-107); Cholesterol 153 mg/dL (140-199); Estimated Glomerular Filt Rate > 60 mL/min (>60); Globulin 2.4 g/dL (1.7-4.1); Glucose 73 mg/dL (70-99); HDL Cholesterol 52 mg/dL (40-60); HEMOLYSIS < 15 (0-50); Potassium 4.0 mmol/L (3.4-5.1); Sodium 138 mmol/L (137-145); Total Protein 6.5 g/dL (6.3-8.2); Triglycerides 70 mg/dL (35-150)
== END ==
PROVIDERS: Family Provider Internal Medicine; PCP Student in an Organized Health Care Education/Training Program; Referring Provider Student in an Organized Health Care Education/Training Program; Visit Provider Student in an Organized Health Care Education/Training Program
DX: E11.9 Type 2 diabetes mellitus without complications (principal)
CPT/HCPCS: 36415; 80053; 80061; 82043; 82570; 83036